=== PATIENT | female | born 1985 | race Caucasian/White ===

== ENCOUNTER 2022-01-03 19:56 | Emergency (ER) | payer MEDICAID, OTHER ==
[~2022-01-03] VITALS: Ht 175.3 cm; Wt 86.2 kg
[2022-01-03] MEDS ORDERED: LIDOCAINE HCL 1% 20 ML VIAL IJ ONE (23:45)
[2022-01-03] MEDS ORDERED: LIDOCAINE HCL 1% 20 ML VIAL ONE (23:58)
[2022-01-04] MEDS ORDERED: CEPH500C2 PO (01:02)
[2022-01-04] MEDS ORDERED: SULF1TAB48 PO (01:03)
[2022-01-04 01:15] VITALS: BP 136/70
== END 2022-01-04 01:23 | disposition home or self-care (01) ==
LOC: ER 20:03
DX: L03.011 Cellulitis of right finger (principal); F17.210 Nicotine dependence, cigarettes, uncomplicated; E11.9 Type 2 diabetes mellitus without complications; Z88.0 Allergy status to penicillin
CPT/HCPCS: 99283; 10060; J3490; A4663